=== PATIENT | male | born 1960 | race African-American/Black ===

== ENCOUNTER 2019-06-30 04:10 | Emergency (ER) | payer OTHER ==
--- NOTE | 2019-06-30 04:53 | PDOC ---
Attending Attestation - Resident Resident Name: Sachi Calderon - ED Attending Attestation I have performed the following: I have examined & evaluated the patient, The case was reviewed & discussed with the resident, I agree w/resident's findings & plan - HPI HPI: 07/02/19 20:05 58 y/o M with hx of MD s/p 2 stents presenting to the ED for left flank pain and back pain. Pain started 3 weeks ago; pain progressively worsened requiring admission at [facility]. The pain is focally in the left flank with radiation laterally and posteriorly to the back. Pain is worse with motion. No fever, chills, trauma, falls, exercise, triggers, lifting heavy objects, chest pain, SOB, PARIKH, LH, n/v, abd pain, dysuria, hematuria, diarrhea. He states while he was admitted, he had several imaging and lab studies performed that all came back negative but was told he had shingles and was given valacyclovir scripts. - Physicial Exam PE: 06/30/19 06:50 Musculoskeletal back spasm and pain on the left paraspinal area around T6-T9. No midline tenderness and no rashes. Pt afebrile UA normal Chem normal Normal exam Agree with resident exam - Medical Decision Making 07/02/19 20:07 Home with muscle relaxants and NSAIDS.
[2019-06-30 05:03] VITALS: BP 105/74; PULSE 81; BMI 22.7
[2019-06-30] MEDS ORDERED: KETOROLAC TROMETHAMINE 60 MG/2 ML VIAL IM ONE (05:17)
[2019-06-30] MEDS ORDERED: METHOCARBAMOL 500 MG TABLET PO ONE (05:17)
--- NOTE | 2019-06-30 05:20 | PDOC ---
History of Present Illness - General Stated Complaint: LOW BACK PAIN Time Seen by Provider: 06/30/19 04:25 - History of Present Illness Initial Comments: 06/30/19 05:04 HPI: 58 y/o M with hx of CT s/p 2 stents presenting to the ED for left flank pain and back pain. He states the pain started 3 weeks ago however, last week the pain progressively worsened requiring admission at [facility] for 5 days. The pain is focally in the left flank with radiation laterally and posteriorly to the back. Pain is described as the strongest pain he has ever had and is a shocking/pins and needles sensation. Pain is constant but intermittently worsens with motion. He tried oxy from the other hospital but he states minimal relief. He denies fever, chills, trauma, falls, exercise, triggers, lifting heavy objects, chest pain, SOB, PARIKH, LH, n/v, abd pain, dysuria , hematuria, diarrhea. He states while he was admitted, he had several imaging and lab studies performed that all came back negative but was told he had shingles and was given valacyclovir scripts. PMHx: as noted above ROS: as noted SHx: 5-6 cigs/day; no alcohol use; no rec drugs Allergies: NKDA ROS: GENERAL/CONSTITUTIONAL: No fever or chills. No weakness. HEAD, EYES, EARS, NOSE AND THROAT: No change in vision. No ear pain or discharge. No sore throat. CARDIOVASCULAR: No chest pain or shortness of breath RESPIRATORY: No cough, wheezing, or hemoptysis. GASTROINTESTINAL: No nausea, vomiting, diarrhea or constipation. GENITOURINARY: No dysuria, frequency, or change in urination. MUSCULOSKELETAL: +left flank and back pain SKIN: No rash NEUROLOGIC: No headache, vertigo, loss of consciousness, or change in strength/ sensation. ENDOCRINE: No increased thirst. No abnormal weight change HEMATOLOGIC/LYMPHATIC: No anemia, easy bleeding, or history of blood clots. ALLERGIC/IMMUNOLOGIC: No hives or skin allergy. PE: GENERAL: Awake, alert, and fully oriented, mild acute distress HEAD: No signs of trauma, normocephalic, atraumatic EYES: EOMI, sclera anicteric, conjunctiva clear ENT: Auricles normal inspection, hearing grossly normal, nares patent, oropharynx clear without exudates. Moist mucosa NECK: Normal ROM, no lymphadenopathy LUNGS: No increased work of breathing, symmetrical chest rise, clear to auscultation bilaterally, no wheezes, crackles or rhonchi HEART: Regular rate and rhythm, normal S1 and S2, no murmurs, peripheral pulses 2+ and equal bilaterally. ABDOMEN: Soft, nondistended, nontender, normoactive bowel sounds. No guarding, no rebound. No masses. LCVAT EXTREMITIES: Normal inspection, Normal range of motion, no edema. No clubbing or cyanosis. MSK: no midline tenderness, left paraspinal midback ttp with tense/spasmed muscles, no skin changes or rashes noted NEUROLOGICAL: Cranial nerves II through XII grossly intact. Normal speech, normal gait, no focal sensorimotor deficits SKIN: Warm, Dry, normal turgor, no rashes or lesions noted Past History - Past Medical History Allergies/Adverse Reactions: Allergies Allergy/AdvReac Type Severity Reaction Status Date / Time No Known Allergies Allergy Verified 06/30/19 04:49 Home Medications: Ambulatory Orders Acetaminophen 325 mg PO Q6H 06/30/19 Aspirin [ASA -] 81 mg PO DAILY 06/30/19 Atorvastatin Ca [Lipitor] 80 mg PO HS 06/30/19 Cilostazol 100 mg PO BID 06/30/19 Ciprofloxacin [Cipro (Restricted To Id)] 500 mg PO Q12H 06/30/19 Docusate Sodium [Docusate 100 mg] 100 mg PO BID 06/30/19 Gabapentin [Neurontin -] 300 mg PO Q8H 06/30/19 Methocarbamol [Robaxin -] 500 mg PO TID #21 tablet 06/30/19 Naproxen Sodium 275 mg PO DAILY 06/30/19 Oxycodone HCl/Acetaminophen [Percocet 5-325 mg Tablet] 1 tab PO Q6H 06/30/19 Pantoprazole Sodium [Protonix -] 40 mg PO DAILY 06/30/19 Sildenafil Citrate 100 mg PO DAILY PRN 06/30/19 Tamsulosin HCl [Flomax] 0.4 mg PO DAILY 06/30/19 Valacyclovir HCl [Valtrex -] 500 mg PO BID 06/30/19 COPD: No - Surgical History Cardiac Surgery: Yes (stents) - Immunization History Immunization Up to Date: Yes - Psycho Social/Smoking Cessation Hx Smoking History: Never smoked Hx Alcohol Use: No (social) Drug/Substance Use Hx: No *Physical Exam - Vital Signs Last Vital Signs Temp Pulse Resp BP Pulse Ox 81 16 105/74 99 06/30/19 04:37 06/30/19 04:37 06/30/19 04:37 06/30/19 04:37 ED Treatment Course - LABORATORY CBC & Chemistry Diagram: 06/30/19 05:40 06/30/19 05:40 Medical Decision Making - Medical Decision Making 06/30/19 05:54 58 y/o M with hx of CT s/p 2 stents presenting to the ED for left flank pain and back pain. VSS, AF. PE notable for left left back and flank tenderness. -cbc, cmp, ua -toradol, methocarbamol 06/30/19 06:49 pain slightly improved since arrival. pain appears consistent with MSK injury described with patient resutls and plan to DC home; patient in agreement will prescribe additional pain med prior to DC rec f/u with pcp Discharge - Discharge Information Problems reviewed: Yes Clinical Impression/Diagnosis: Back pain Qualifiers: Back pain location: low back pain Chronicity: acute Back pain laterality: left Sciatica presence: without sciatica Qualified Code(s): M54.5 - Low back pain Condition: Stable Disposition: HOME - Additional Discharge Information Prescriptions: Methocarbamol [Robaxin -] 500 mg PO TID #21 tablet - Follow up/Referral - Patient Discharge Instructions Patient Printed Discharge Instructions: DI for Low Back Pain Additional Instructions: Return to the ED if you have new or worsening symptoms including loss of bowel or urinary incontinence, worsening pain and inability to walk, fevers, fainting Please take tylenol 650mg every 6 hours and ibuprofen 600mg every 6 hours scheduled for pain control. Please take methocarbamol (muscle relaxer) that was sent to the pharmacy. You may also purchase 4% lidoderm patch over the counter for pain control. Please followup with your primary care doctor for further management - Post Discharge Activity
[2019-06-30] MEDS ORDERED: KETOROLAC TROMETHAMINE 60 MG/2 ML VIAL ONE (05:38)
[2019-06-30] MEDS ORDERED: METHOCARBAMOL 500 MG TABLET ONE (05:38)
[2019-06-30 06:20] LABS: PH,URINE 8.5 (5.0-8.0); URINE APPEARANCE CLEAR; URINE BILIRUBIN NEGATIVE (NEGATIVE); URINE COLOR YELLOW; URINE GLUCOSE (UA) NEGATIVE (NEGATIVE); URINE KETONE NEGATIVE (NEGATIVE); URINE LEUK ESTERASE NEGATIVE (NEGATIVE); URINE NITRITE NEGATIVE (NEGATIVE); URINE PROTEIN NEGATIVE (NEGATIVE); URINE UROBILINOGEN 0.2 mg/dL (0.2-1.0)
[2019-06-30 06:24] LABS: PROTHROMBIN TIME (PATIENT) 11.8 SEC (9.7-13.0)
[2019-06-30 06:36] LABS: ALBUMIN 3.9 g/dl (3.4-5.0); BILIRUBIN,TOTAL 0.5 mg/dL (0.2-1); BLOOD UREA NITROGEN 13.7 mg/dL (7-18); CALCIUM 9.2 mg/dL (8.5-10.1); CREATININE 0.7 mg/dL (0.55-1.3); POTASSIUM 4.4 mmol/L (3.5-5.1); TOT PROT 7.6 g/dl (6.4-8.2)
[2019-06-30] MEDS ORDERED: LIDOCAINE 5% TOPICAL PATCH TP ONE (06:48)
[2019-06-30] MEDS ORDERED: LIDOCAINE 5% TOPICAL PATCH ONE (07:15)
[2019-06-30 08:17] LABS: BASO % 0.6 % (0-2.0); EOS % 1.7 % (0-4.5); HEMATOCRIT 40.1 % (35.4-49); HEMOGLOBIN 13.4 GM/dL (11.7-16.9); LYMPH % 22.6 % (8-40); MCH 31.7 pg (25.7-33.7); MCHC 33.4 g/dl (32.0-35.9); MEAN PLT VOLUME 7.5 fl (7.5-11.1); MONO % 8.1 % (3.8-10.2); PLATELET COUNT 312 K/MM3 (134-434); RBC 4.22 M/mm3 (4.00-5.60); RDW 13.3 % (11.9-15.9); WHITE BLOOD COUNT 11.2 K/mm3 (4.0-10.0)
[2019-06-30] MEDS ORDERED: LIDOCAINE PATCH REMOVAL MC SCH (22:00)
== END 2019-06-30 07:44 | disposition home or self-care (01) ==
LOC: JER 04:10
PROC: 3E0233Z Introduction of Anti-inflammatory into Muscle, Percutaneous Approach (ICD-10-PCS; principal; 2019-06-30)
DX: M62.830 Muscle spasm of back (principal); I25.10 Atherosclerotic heart disease of native coronary artery without angina pectoris; I15.1 Hypertension secondary to other renal disorders; Z95.5 Presence of coronary angioplasty implant and graft
CPT/HCPCS: 36415; 80053; 81003; 85025; 85610; 99282-25

== ENCOUNTER 2020-12-07 11:19 | Inpatient (IN) | payer OTHER ==
[2020-12-07 17:45] VITALS: BMI 20.9
[2020-12-07] MEDS ORDERED: ACETAMINOPHEN 500 MG TABLET (FP) PO PRN (19:08)
[2020-12-07] MEDS: levETIRAcetam 500 MG/5 ML INJECTION VIAL IVPB SCH (21:26)
[2020-12-07] MEDS: ATORVASTATIN CA 80 MG TABLET (FP) PO SCH (21:26)
[2020-12-07 21:37] LABS: HEMATOCRIT 36.6 % (35.4-49); HEMOGLOBIN 12.4 GM/dL (11.7-16.9); MCHC 33.8 g/dl (32.0-35.9); MEAN CELL VOLUME 94.7 fl (80-96); MEAN PLT VOLUME 7.6 fl (7.5-11.1); PLATELET COUNT 250 K/MM3 (134-434); RBC 3.86 M/mm3 (4.00-5.60); RDW 13.3 % (11.9-15.9); WHITE BLOOD COUNT 8.8 K/mm3 (4.0-10.0)
[2020-12-07 21:50] LABS: CALCIUM 8.7 mg/dL (8.5-10.1)
[2020-12-07 21:51] LABS: ALBUMIN 3.3 g/dl (3.4-5.0)
[2020-12-07 21:54] LABS: BILIRUBIN,DIRECT 0.1 mg/dL (0.0-0.2); CREATININE 0.8 mg/dL (0.55-1.3)
[2020-12-07 21:55] LABS: BILIRUBIN,TOTAL 0.4 mg/dL (0.2-1); BLOOD UREA NITROGEN 14.3 mg/dL (7-18); TOT PROT 6.6 g/dl (6.4-8.2)
[2020-12-08] MEDS: CLOPIDOGREL BISULFATE 75 MG TABLET (FP) PO SCH (10:00)
[2020-12-08] MEDS: levETIRAcetam 500 MG/5 ML INJECTION VIAL IVPB SCH ×2 (10:00→21:10)
[2020-12-08] MEDS: ATORVASTATIN CA 80 MG TABLET (FP) PO SCH (21:10)
[2020-12-09] MEDS: levETIRAcetam 500 MG/5 ML INJECTION VIAL IVPB SCH (10:30)
[2020-12-09] MEDS: CLOPIDOGREL BISULFATE 75 MG TABLET (FP) PO SCH (10:30)
[2020-12-09] MEDS: levETIRAcetam 500 MG TABLET (FP) PO SCH (21:30)
[2020-12-09] MEDS: ATORVASTATIN CA 80 MG TABLET (FP) PO SCH (21:31)
[2020-12-10] MEDS: levETIRAcetam 500 MG TABLET (FP) PO SCH (09:05)
[2020-12-10] MEDS: CLOPIDOGREL BISULFATE 75 MG TABLET (FP) PO SCH (09:05)
[2020-12-10 13:59] VITALS: BP 115/62; PULSE 78; TEMP 98.3
== END 2020-12-10 17:00 | disposition home or self-care (01) | DRG 53 ==
LOC: J4S 16:26
PROVIDERS: ADMIT Psychiatry & Neurology Neurology; ATTEND Psychiatry & Neurology Neurology
PROC: 4A00X4Z Measurement of Central Nervous Electrical Activity, External Approach (ICD-10-PCS; principal; 2020-12-07)
DX: G40.909 Epilepsy, unspecified, not intractable, without status epilepticus (principal); F17.210 Nicotine dependence, cigarettes, uncomplicated; E78.00 Pure hypercholesterolemia, unspecified; I25.10 Atherosclerotic heart disease of native coronary artery without angina pectoris; I10 Essential (primary) hypertension; M54.9 Dorsalgia, unspecified
CPT/HCPCS: 36415; 80048; 80076; 85027; 93005; 93010; 95705